=== PATIENT | male | born 1960 | race Caucasian/White ===

== ENCOUNTER 2020-09-18 11:04 | Emergency (ER) | payer OTHER ==
--- NOTE | 2020-09-18 12:04 | ED Physician Documentation ---
PD HPI LOWER EXT INJURY - Stated complaint Stated Complaint: R LEG SWELLING/CRAMPING - Chief complaint Chief Complaint: Ext Problem - History obtained from History obtained from: Patient - History of Present Illness PD HPI LOW EXT INJURY LOCATION: Right, Knee, Calf Type of injury: No: Fall, Twist Where injury occurred: Home Timing - details: Gradual onset (has had onset of right calf pain, cramps and it has progressed up to his knee area posteriorly. Had had similar though more abrupt 3 years ago with Dvt left leg after prostate cancer procedure. He had started symptoms in [place], and has increased since driving up to [place] for the summer last week.) Worsened by: Moving Associated symptoms: Swelling. No: Weakness, Numbness, Discolored Contributing factors: No: Anticoagulated (had been on DOAC 3 years ago for DVT left leg, on for 6 months as seemed provoked associated with prostate procedure.) Similar symptoms before: Diagnosis (3 years ago, DVT left leg.) Recently seen: Not recently seen Review of Systems Constitutional: denies: Fever, Chills Nose: denies: Rhinorrhea / runny nose, Congestion Throat: denies: Sore throat Cardiac: denies: Chest pain / pressure, Palpitations Respiratory: denies: Dyspnea, Cough GI: denies: Nausea, Vomiting, Diarrhea, Bloody / black stool Skin: denies: Rash, Lesions Musculoskeletal: reports: Extremity swelling (just right calf/lower leg) Neurologic: denies: Focal weakness, Numbness Endocrine: denies: Weight loss, Easy bruising / bleeding Immunocompromised: denies: Immunocompromised PD PAST MEDICAL HISTORY - Past Medical History Cardiovascular: Hypertension, High cholesterol Respiratory: None Neuro: None Endocrine/Autoimmune: None GI: None - Present Medications Home Medications: Ambulatory Orders Medication Instructions Recorded Confirmed Apixaban [Eliquis] 5 mg PO BID 30 Days #74 tablet 09/18/20 Lisinopril [Prinivil] 10 mg PO DAILY 09/18/20 09/18/20 - Allergies Allergies/Adverse Reactions: Allergies Allergy/AdvReac Type Severity Reaction Status Date / Time No Known Drug Allergies Allergy Verified 09/18/20 11:23 - Living Situation Living Situation: reports: With family Living Arrangement: reports: At home (he and live in [place] 9 months of the year and [facility] for summer. ) - Social History Does the pt smoke?: No Does the pt have substance abuse?: No - Family History Family history: reports: CVA (multiple family members.). denies: Sudden - POLST Patient has POLST: No POLST Status: Full Code PD ED PE NORMAL - Vitals Vital signs reviewed: Yes - General General: Alert and oriented X 3, No acute distress, Well developed/nourished - Neck Neck: Supple, no meningeal sign, No adenopathy - Cardiac Cardiac: RRR, No murmur - Respiratory Respiratory: Clear bilaterally - Abdomen Abdomen: Soft, Non tender - Derm Derm: Normal color, Warm and dry - Extremities Extremities: Other (right ankle and lower leg with 1+ edema and some calf tenderness. Mild popliteal tenderness. No anterior/joint knee effusion. No skin rash nor sores. Left leg without swelling nor tender. ) - Neuro Neuro: Alert and oriented X 3, No motor deficit, Normal speech Results - Vitals Vitals: Vital Signs - 24 hr 09/18/20 09/18/20 11:18 14:52 Temperature 36.9 C 36.7 C Heart Rate 56 L 55 L Respiratory 15 16 Rate Blood Pressure 148/73 H 148/85 H O2 Saturation 100 97 Oxygen O2 Source Room air - Labs Labs: Laboratory Tests 09/18/20 09/18/20 09/18/20 13:37 13:37 13:37 WBC 8.5 RBC 5.21 Hgb 15.2 Hct 46.4 MCV 89.1 MCH 29.2 MCHC 32.8 RDW 13.2 Plt Count 295 MPV 9.6 Neut # (Auto) 6.0 Lymph # (Auto) 1.3 L [place] # (Auto) 0.7 Eos # (Auto) 0.4 Baso # (Auto) 0.1 Absolute Nucleated RBC 0.00 Nucleated RBC % 0.0 Sodium 142 Potassium 4.6 Chloride 100 L Carbon Dioxide 28 Anion Gap 14.0 H BUN 24 H Creatinine 1.2 Estimated GFR (MDRD) 61 L Glucose 98 Calcium 9.9 Total Bilirubin 0.7 AST 22 ALT 32 Alkaline Phosphatase 78 B-Natriuretic Peptide 32 Total Protein 7.8 Albumin 4.5 Globulin 3.3 Albumin/Globulin Ratio 1.4 Lipase 27 - Rads (name of study) duplex Right lower leg Radiology: Prelim report reviewed (DVT in popliteal and peroneal. ), See rad report PD MEDICAL DECISION MAKING - ED course Complexity details: reviewed results (basic labs okay. I was going to do hypercoagulability profile/labs but could not find an order set for it, nor the lab orders for most of them [facility]. Would have had to enter most of them as [facility] [place], so defer it to his PMD. ), considered differential, d/w patient Departure - Departure Disposition: 01 Home, Self Care Clinical Impression: DVT (deep venous thrombosis) Qualifiers: DVT location: lower extremity Affected thrombotic vein of extremity: popliteal Chronicity: acute Laterality: right Qualified Code(s): I82.431 - Acute embolism and thrombosis of right popliteal vein Condition: Stable Record reviewed to determine appropriate education?: Yes Instructions: ED DVT Prescriptions: Apixaban [Eliquis] 5 mg PO BID 30 Days #74 tablet Comments: You do have a blood clot on the lower right leg. Start the Eliquis 10 mg twice daily for a week and then 5 mg twice daily ongoing after that. I did not find a good hypercoagulability panel in our ordering system so I held off on that for now. Follow-up with your primary care after the initial treatment for the DVT and they can decide if they want to do blood testing to look for underlying clotting disorders. Tylenol if needed for pains. You had been on blood thinners previously so you know the cautions and risk factors for injury and bleeding. Avoid aspirin and ibuprofen in conjunction with the Eliquis. Tylenol if needed for pains. Stay well-hydrated. Recheck immediately with any head impact or injury or fall. Watch for signs of dark black stool or stomach pains. Etc. Discharge Date/Time: 09/18/20 14:54
[2020-09-18 13:43] LABS: BASOPHILS # (AUTO) 0.1 10^3/uL (0.0-0.1); BASOPHILS % (AUTO) 0.9 %; EOSINOPHILS # (AUTO) 0.4 10^3/uL (0.0-0.7); EOSINOPHILS % (AUTO) 5.2 %; HCT - HEMATOCRIT 46.4 % (42.0-52.0); HGB - HEMOGLOBIN 15.2 g/dL (14.0-18.0); LYMPHOCYTES # (AUTO) 1.3 10^3/uL (1.5-3.5); LYMPHOCYTES % (AUTO) 15.3 %; MEAN CORPUSCULAR HEMOGLOBIN 29.2 pg (27.0-31.0); MEAN CORPUSCULAR HGB CONC 32.8 g/dL (32.0-36.0); MEAN CORPUSCULAR VOLUME 89.1 fL (80.0-94.0); MEAN PLATELET VOLUME 9.6 fL (7.4-11.4); MONOCYTES # (AUTO) 0.7 10^3/uL (0.0-1.0); MONOCYTES % (AUTO) 8.3 %; NEUTROPHILS % (AUTO) 69.9 %; PLT - PLATELET COUNT 295 10^3/uL (130-450); RED BLOOD COUNT 5.21 10^6/uL (4.70-6.10); RED CELL DISTRIBUTION WIDTH 13.2 % (12.0-15.0); WHITE BLOOD COUNT 8.5 x10^3/uL (4.8-10.8)
--- NOTE | 2020-09-18 13:52 | XRAY Report ---
PROCEDURE: Chest 2 View X-Ray INDICATIONS: dyspnea/ cough TECHNIQUE: 2 view(s) of the chest. COMPARISON: None. FINDINGS: Surgical changes and devices: None. Lungs and pleura: Nodular density overlying the lateral aspect of the right midlung on the posterior aspect of the right fourth rib. This is noted only on the frontal view. There is minimal bibasilar at electasis. No focal consolidation, pneumothorax, or pleural effusion. Mediastinum: Mediastinal contours are normal. Heart size is normal. Bones and chest wall: No acute osseous abnormality. Soft tissues appear unremarkable. IMPRESSION: Nodular density overlying the right mid lung over the apex that dilatation of the anterior right four th rib may represent a sclerotic bone lesion versus granuloma. Otherwise, no evidence of an acute car diopulmonary abnormality. Consider nonemergent chest CT for further evaluation if clinically warrante d. Reviewed by: Boo Morales DO on 09/18/2020 12:50 PM RACHELL Approved by: Boo Morales DO on 09/18/2020 12:50 PM RACHELL Station ID: [id number]
--- NOTE | 2020-09-18 13:55 | Ultrasound Report ---
PROCEDURE: Duplex Ext Veins Right INDICATIONS: right leg swelling/cramps 2 weeks, increasing TECHNIQUE: Real-time imaging, as well as color and pulse Doppler interrogation, were performed of the lower extr emity deep veins from the inguinal ligament to the popliteal fossa. COMPARISON: None. FINDINGS: There is noncompressibility with intraluminal debris within the popliteal vein as well as t he posterior tibial and proximal peroneal veins. The rest of the imaged venous structures of the lowe r extremity are compressible without intraluminal debris. IMPRESSION: Findings consistent with deep venous thrombosis of the right lower leg and popliteal veins. Reviewed by: Boo Morales DO on 09/18/2020 12:53 PM RACHELL Approved by: Boo Morales DO on 09/18/2020 12:53 PM RACHELL Station ID: [id number]
[2020-09-18 13:57] LABS: ALBUMIN 4.5 g/dL (3.2-5.5); ALBUMIN/GLOBULIN RATIO 1.4 (1.0-2.2); BILIRUBIN,TOTAL 0.7 mg/dL (0.2-1.0); CALCIUM 9.9 mg/dL (8.5-10.3); CREATININE 1.2 mg/dL (0.6-1.2); POTASSIUM 4.6 mmol/L (3.5-5.0); TOTAL PROTEIN 7.8 g/dL (6.7-8.2)
[2020-09-18] MEDS ORDERED: APIXABAN 5 MG TABLET PO STA (14:24)
[2020-09-18 14:54] VITALS: BP 148/85
== END 2020-09-18 14:54 | disposition home or self-care (01) ==
LOC: ED 11:04
DX: I82.431 Acute embolism and thrombosis of right popliteal vein (principal); I10 Essential (primary) hypertension; Z79.899 Other long term (current) drug therapy
CPT/HCPCS: 36415; 71046; 80053; 83690; 83880; 85025; 93971; 99284; A9270

== ENCOUNTER 2023-10-14 12:19 | Emergency (ER) | payer MEDICARE, OTHER ==
--- NOTE | 2023-10-14 12:42 | ED Physician Documentation ---
History of Present Illness - Stated complaint Stated Complaint: HEAD INJ - Chief complaint Chief Complaint: Trauma Hd/Nk - History obtained from History obtained from: Patient - History of Present Illness Timing: How many days ago (2) Pain level max: 0 Pain level now: 0 - Additonal information Additional information: 63-year-old male presents to the emergency department stating that he was working on his deck yesterday when an aluminum post fell and struck him on the top of the head causing a laceration. Repaired with Steri-Strips at home yesterday. He states that he did not have any loss of consciousness. No vomiting. No headache. He takes Eliquis at home. No neck or back pain. No numbness or tingling. No nausea or vomiting. He states his last tetanus shot was "a long time ago". Review of Systems Constitutional: denies: Fever, Chills Skin: denies: Rash PD PAST MEDICAL HISTORY - Past Medical History Past Medical History: Yes Cardiovascular: Hypertension, High cholesterol Respiratory: None Neuro: None Endocrine/Autoimmune: None GI: None : None HEENT: None Psych: None Musculoskeletal: None Derm: None - Past Surgical History Past Surgical History: No - Present Medications Home Medications: Ambulatory Orders Medication Instructions Recorded Confirmed Apixaban [Eliquis] 5 mg PO BID 30 Days #74 tablet 09/18/20 10/14/23 lisinopriL [Prinivil] 10 mg PO DAILY 09/18/20 10/14/23 - Allergies Allergies/Adverse Reactions: Allergies Allergy/AdvReac Type Severity Reaction Status Date / Time No Known Drug Allergies Allergy Verified 10/14/23 12:22 - Social History Does the pt smoke?: No Smoking Status: Never smoker Does the pt drink ETOH?: No Does the pt have substance abuse?: No - Immunizations Immunizations are current?: Yes - POLST Patient has POLST: No POLST Status: Full Code PD ED PE NORMAL - Vitals Vital signs reviewed: Yes - General General: Alert and oriented X 3, No acute distress - HEENT HEENT: PERRL, Moist mucous membranes, Other (4cm linear scalp laceration well approximated with steri strips No bleeding. No scalp hematomas, no palpable skull fractures.) - Cardiac Cardiac: RRR, No murmur - Respiratory Respiratory: Clear bilaterally - Abdomen Abdomen: Normal bowel sounds, Soft, Non tender, Non distended - Derm Derm: Warm and dry - Extremities Extremities: No deformity - Neuro Neuro: Alert and oriented X 3 - Psych Psych: Normal mood, Normal affect Results - Vitals Vitals: Vital Signs - 24 hr 10/14/23 10/14/23 12:22 13:09 Temperature 36.5 C 36.9 C Heart Rate 50 L 43 L Respiratory 16 18 Rate Blood Pressure 146/72 H 138/69 H O2 Saturation 99 100 Oxygen O2 Source Room air PD Medical Decision Making - ED course Complexity details: considered differential, d/w patient ED course: Patient is a 63-year-old male who suffered a minor closed head injury yesterday causing a scalp laceration. The laceration was repaired at home yesterday after being cleansed and was bandaged with commercial plastic interlocked Steri- Strips. It is well-approximated and does not require any further repair today. There is no palpable skull fractures. No hematomas. No neck or back pain. Discussed a tetanus shot and head CT at length. I went through the recommendations for minor closed head injuries with the patient's on Eliquis. Explained the risks including delayed bleeding, coma, loss of current lifestyle, . Patient spoke to his son who is a doctor, he did agree to a tetanus shot but continues to refuse a CT scan. Explained again the standard of care is a CT scan, patient continues to refuse and accepts the risks of refusing. No neurological deficits here. Alert and oriented x 3. Patient appears to have the capability to make this decision. He is not intoxicated and has no altered mental status. Head injury instructions given at bedside. Patient is informed that he is welcome to return at any time should he change his mind. Wound care instructions given at bedside as well. Patient counseled regarding signs and symptoms for which I believe and urgent re-evaluation would be necessary. Patient with good understanding of and agreement to plan and is comfortable going home at this time This document was made in part using voice recognition software. While efforts are made to proofread this document, sound alike and grammatical errors may occur. Departure - Departure Disposition: 01 Home, Self Care Clinical Impression: Closed head injury Qualifiers: Encounter type: initial encounter Qualified Code(s): S09.90XA - Unspecified injury of head, initial encounter Scalp laceration Qualifiers: Encounter type: initial encounter Qualified Code(s): S01.01XA - Laceration without foreign body of scalp, initial encounter Condition: Good Instructions: ED Head Injury Closed Follow-Up: your,doctor in 3 days for recheck [Other] Comments: As we discussed the standard of care for a head injury when you are on an anticoagulant such as Eliquis is to have a CT scan to rule out any type of intracranial bleeding. Anticoagulants put you at a much higher risk for bleeding inside your skull and inside your brain that may not cause any symptoms until the bleed has become much larger and can cause permanent damage including coma, , loss of function and loss of current lifestyle. You have refused the CT scan today and have stated understanding of these risks. You are welcome to return at any time should you change your mind about this and wish to receive a CT scan or if you develop any symptoms such as headaches, dizziness, vomiting, vision changes or any other new or worrisome symptoms. You were given a tetanus shot today. The wound should heal well with the steri strips that you previously applied. Forms: PCP List Discharge Date/Time: 10/14/23 13:09
[2023-10-14] MEDS: TETANUS/DIPHTHERIA/PERTUSSIS 0.5 ML SYRINGE IM ONE (12:51)
[2023-10-14 13:17] VITALS: BP 138/69; O2SAT 100
== END 2023-10-14 13:09 | disposition home or self-care (01) ==
LOC: ED 12:19
DX: S09.90XA Unspecified injury of head, initial encounter (principal); S01.01XA Laceration without foreign body of scalp, initial encounter; W22.8XXA Striking against or struck by other objects, initial encounter; I10 Essential (primary) hypertension; E78.00 Pure hypercholesterolemia, unspecified; Z23 Encounter for immunization; Z79.01 Long term (current) use of anticoagulants; Z79.899 Other long term (current) drug therapy
CPT/HCPCS: 90471; 99283